=== PATIENT | female | born 1970 | race Caucasian/White ===

== ENCOUNTER 2021-05-12 08:07 | Outpatient (CLI) | payer BC | END 2021-05-12 08:08 | disposition home or self-care (01) | LOC: BICMAMMO 08:07 | PROVIDERS: ATTEND Obstetrics & Gynecology | DX: Z12.31 Encounter for screening mammogram for malignant neoplasm of breast (principal); N64.89 Other specified disorders of breast | CPT/HCPCS: 77063; 77067 ==

== ENCOUNTER 2021-05-28 14:26 | Outpatient (CLI) | payer BC | END 2021-05-28 14:27 | disposition home or self-care (01) | LOC: BICMAMMO 14:26 | PROVIDERS: ATTEND Obstetrics & Gynecology | DX: R92.2 Inconclusive mammogram (principal); N63.15 Unspecified lump in the right breast, overlapping quadrants | CPT/HCPCS: G0279 ==

== ENCOUNTER 2021-12-02 09:15 | Outpatient (CLI) | payer BC | END 2021-12-02 09:16 | disposition home or self-care (01) | LOC: BICMAMMO 09:15 | PROVIDERS: ATTEND Family Medicine | DX: R92.8 Other abnormal and inconclusive findings on diagnostic imaging of breast (principal); N63.12 Unspecified lump in the right breast, upper inner quadrant | CPT/HCPCS: G0279 ==

== ENCOUNTER 2021-12-14 11:03 | Day surgery (SDC) | payer BC ==
[2021-12-14] MEDS ORDERED: fentaNYL Citrate/PF 100 MCG/2 ML SYRINGE ONE (14:03)
[2021-12-14] MEDS ORDERED: Levofloxacin 500 mg/D5W 100 ml Premix Bag ONE (14:03)
[2021-12-14] MEDS ORDERED: Dexamethasone 20 MG/5 ML VIAL ONE (14:12)
[2021-12-14] MEDS ORDERED: Lidocaine 1% PF 5 ML VIAL ONE (14:12)
[2021-12-14] MEDS ORDERED: Ondansetron PF 4 MG/2 ML Vial ONE (14:12)
[2021-12-14] MEDS ORDERED: Ketorolac Tromethamine 30 MG/ML VIAL ONE (14:12)
[2021-12-14] MEDS ORDERED: PROPOFOL 200 MG/20 ML VIAL ONE (14:12)
[2021-12-14] MEDS ORDERED: Fentanyl 100 MCG/2 ML VIAL ONE (15:26)
[2021-12-14] MEDS ORDERED: Phenazopyridine HCl 100 MG TAB ONE (15:58)
[2021-12-14] MEDS ORDERED: Oxybutynin 5 MG TAB ONE (15:58)
[2021-12-14] MEDS ORDERED: HYDROcodone/Acetaminophen 5/325 mg Tablet ONE (15:58)
[2021-12-18 10:17] LABS: CA Oxalate Dihydrate 50 % (.); CA Oxalate Monohydrate 50 % (.); Color Tan (.); Stone Weight 3 mg (.)
== END 2021-12-14 16:55 | disposition home or self-care (01) ==
LOC: SDC 11:03
PROVIDERS: ATTEND Urology
DX: N13.2 Hydronephrosis with renal and ureteral calculous obstruction (principal)
CPT/HCPCS: 74420; 82365; 88300; C2617; J1956; J3010

== ENCOUNTER 2022-01-01 09:30 | Outpatient (CLI) | payer BC | END 2022-01-01 09:31 | disposition home or self-care (01) | LOC: BICULT 09:30 | PROVIDERS: ATTEND Urology | DX: N13.2 Hydronephrosis with renal and ureteral calculous obstruction (principal); N32.89 Other specified disorders of bladder; K76.9 Liver disease, unspecified; R93.422 Abnormal radiologic findings on diagnostic imaging of left kidney | CPT/HCPCS: 76770 ==

== ENCOUNTER 2022-08-12 08:13 | Outpatient (CLI) | payer BC | END 2022-08-12 08:14 | disposition home or self-care (01) | LOC: BICMAMMO 08:13 | PROVIDERS: ATTEND Family Medicine | DX: R92.8 Other abnormal and inconclusive findings on diagnostic imaging of breast (principal); R92.1 Mammographic calcification found on diagnostic imaging of breast; N63.10 Unspecified lump in the right breast, unspecified quadrant; Z91.89 Other specified personal risk factors, not elsewhere classified | CPT/HCPCS: 77066; G0279 ==

== ENCOUNTER 2023-04-21 08:22 | Outpatient (CLI) | payer BC | END 2023-04-21 08:23 | disposition home or self-care (01) | LOC: BICCT 08:22 | PROVIDERS: ATTEND Internal Medicine | DX: K76.9 Liver disease, unspecified (principal); R16.0 Hepatomegaly, not elsewhere classified | CPT/HCPCS: 74170 ==

== ENCOUNTER 2023-08-16 13:34 | Outpatient (CLI) | payer BC | END 2023-08-16 13:35 | disposition home or self-care (01) | LOC: BICMAMMO 13:34 | PROVIDERS: ATTEND Internal Medicine | DX: N63.10 Unspecified lump in the right breast, unspecified quadrant (principal); R92.8 Other abnormal and inconclusive findings on diagnostic imaging of breast | CPT/HCPCS: 77066; G0279 ==

== ENCOUNTER 2024-08-17 07:59 | Outpatient (CLI) | payer BC | END 2024-08-17 08:00 | disposition home or self-care (01) | LOC: BICMAMMO 07:59 | PROVIDERS: ATTEND Internal Medicine | DX: Z12.31 Encounter for screening mammogram for malignant neoplasm of breast (principal) | CPT/HCPCS: 77063; 77067 ==